=== PATIENT | female | born 1990 | race American Indian/Alaskan Native ===

== ENCOUNTER 2019-07-19 14:40 | Emergency (ER) | payer MEDICAID ==
[2019-07-19 17:05] VITALS: BP 126/92
--- NOTE | 2019-07-19 17:07 | Event Note ---
ED Screening Note ED Screening Note: dysuria that began three days ago no urinary frequency no n/v no fever no abd pain PMHx none no allergies to meds LNMP: 07/13/19 This initial assessment/diagnostic orders/clinical plan/treatment(s) is/are subject to change based on patients health status, clinical progression and re- assessment by fellow clinical providers in the ED. Further treatment and workup at subsequent clinical providers discretion. Patient/guardian urged not to elope from the ED as their condition may be serious if not clinically assessed and managed. Initial orders include: ua, urine preg
[2019-07-19 18:07] LABS: HCG Qualitative,Urine Negative (Negative)
[2019-07-19 18:14] LABS: Bilirubin,Urine NEG (Negative); Blood,Urine NEG (Negative); Color,Urine Yellow (Yellow); Mucus,Urine FEW /HPF; Protein,Urine <15 mg/dL mg/dL (Negative); Urobilinogen,Urine < 2.0 mg/dL (<2.0)
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
[2019-07-19] MEDS ORDERED: LIDOCAINE-MPF (1%) 10 MG/1 ML VIAL 5 ML INFILTRATI ONE (21:14)
[2019-07-19] MEDS ORDERED: AZITHROMYCIN 250 MG TAB PO ONE (21:14)
[2019-07-19] MEDS ORDERED: IBUPROFEN 600 MG TAB PO ONE (21:14)
[2019-07-19] MEDS ORDERED: ONDANSETRON 4 MG ODT TAB PO ONE (21:15)
== END 2019-07-19 21:50 | disposition home or self-care (01) ==
LOC: ED 14:40
DX: N76.0 Acute vaginitis (principal); R10.9 Unspecified abdominal pain; B96.89 Other specified bacterial agents as the cause of diseases classified elsewhere; Z20.2 Contact with and (suspected) exposure to infections with a predominantly sexual mode of transmission; Z79.899 Other long term (current) drug therapy
CPT/HCPCS: 81001; 81025; 87210; 87591; 96372; 99284; J0696; Q0162